=== PATIENT | female | born 1955 | race Caucasian/White ===

== ENCOUNTER → 2018-01-31 | Outpatient (CLI) | payer OTHER ==
[~2018-01-31] MED LIST: ALP25 PO; ALPR-441 PO; AZIT-18 PO; CALC500T6 PO; DULO60CA51 PO; LEVO25TA57 PO; LOR1 PO; LORA-1455 PO; LOSA-57 PO; PAR20 PO; PARO25TA PO; PRED20TA6 PO; QUET300T17 PO; ROSU40TA18 PO; SERT-1 PO; TRAZ50 PO; [UNRECOGNIZED DRUG - OTHER]; trintellix
--- NOTE | 2018-01-31 16:59 | RADIOLOGY IMAGING REPORT ---
FACILITY: [facility] PATIENT NAME: JOSELYN HAYS : [id number] MR: [id number] V: [id number] EXAM DATE: [id number] ORDERING PHYSICIAN: PADILLA ALONZO TECHNOLOGIST: Rachel Quezada PROCEDURE:BILATERAL DIGITAL SCREENING MAMMOGRAM WITH CAD ASSISTED INTERPRETATION & 3D TOMOSYNTHESIS COMPARISON:Prior mammograms 02/01/17, 01/28/17, 01/16/16, 01/14/15, 01/11/14, 01/10/13. INDICATIONS:SCREENING FINDINGS: Moderately dense mildly heterogeneous fibroglandular tissue is seen throughout the breasts. The parenchymal pattern has remained stable allowing for difference in mammographic technique & patient positioning. There is no evidence of malignant appearing mass, malignant appearing calcifications or other secondary sign of malignancy in either breast. DIAGNOSTIC CATEGORY 1--NEGATIVE. RECOMMENDATIONS: ROUTINE MAMMOGRAM AND CLINICAL EVALUATION. IMPRESSION: BIRADS 1: Negative No significant abnormality is seen. Dictated by: Billie Guerrero M.D. on 01/31/2018 at 10:17 Transcribed by: MADYSON on 01/31/2018 at 10:23 Approved by: Billie Guerrero M.D. on 01/31/2018 at 16:59 [facility]
== END ==
LOC: MAMO 01:13
PROVIDERS: ATTEND Family Medicine
DX: Z12.31 Encounter for screening mammogram for malignant neoplasm of breast (principal)
CPT/HCPCS: 77063; 77067

== ENCOUNTER 2018-04-29 18:19 | Emergency (ER) | payer OTHER ==
--- NOTE | 2018-04-29 18:21 | ER Report ---
History and Physical Time Seen By MD: 18:21 HPI/ROS CHIEF COMPLAINT: Pressure in with suicidal ideation HISTORY OF PRESENT ILLNESS: 62-year-old female who previously presented to the ER on 03/11/17 with suicidal ideation and depression. She had a plan to take an overdose of pills to harm herself. She was transferred to a facility [facility] or [place] after arrangements were made. The patient's daughter transported the patient. At that time we were on divert. We had no beds available at our facility. Today. Patient's complaining of a panic attack. She was in [place] yesterday and had an acute panic attack related to her employment. Patient works here at . Patient denies suicidal ideation at this time. She is requesting medication for acute anxiety. Patient states she follows up with a counselor here in [place]. REVIEW OF SYSTEMS: Respiratory: No cough, no dyspnea. Cardiovascular: No chest pain, no palpitations. Gastrointestinal: No vomiting, no abdominal pain. Musculoskeletal: No back pain. Allergies: Coded Allergies: No Known Drug Allergies (Verified , 03/11/17) Home Meds Active Scripts Lorazepam (ATIVAN) 0.5 Mg Tablet, 1 MG PO Q4-6H for 10 Days Prov:JUAN AWAD MD 03/12/17 Reported Medications Aripiprazole (ABILIFY) 2 Mg Tablet, 2 MG PO QDAY, TAB 04/29/18 [trintellix] No Conflict Check 03/12/17 Sertraline Hcl (ZOLOFT) 50 Mg Tablet, 1 TAB PO QDAY, TAB 03/11/17 Calcium Carbonate (CALCIUM) Unknown Strength Tablet, 500 MG PO QDAY 09/17/16 Losartan/Hydrochlorothiazide (LOSARTAN-HCTZ 100-12.5 MG TAB) 1 Each Tablet, 1 EACH PO QDAY 01/18/15 Levothyroxine Sodium (SYNTHROID) 25 Mcg Tablet, 25 MCG PO QDAY 05/06/13 Trazodone Hcl (Desyrel) 50 Mg Tab, 50 MG PO QHS 01/23/10 Alprazolam (Xanax Er) 0.5 Mg Tab.sr.24h, 0.5 MG PO QDAY 01/23/10 Past Medical/Surgical History Hypertension, hypothyroidism, depression/anxiety Reviewed Nurses Notes: Yes Old Medical Records Reviewed: Yes Hx Smoking: No Smoking Status: Never Smoker Hx Substance Use Disorder: No Hx Alcohol Use: Yes Constitutional Vital Sign - Last 24 Hours 04/29/18 18:31 Temp 98.1 Pulse 75 Resp 18 B/P (MAP) 131/88 Pulse Ox 90 O2 Delivery Room Air Physical Exam General Appearance: The patient is alert, has no immediate need for airway protection and no current signs of toxicity. Vital signs stable, afebrile, pulse ox normal HEENT: Pupils equal and round no injection. Oropharynx without redness or exudate, mucous. Membranes are moist Respiratory: Chest is non tender, lungs are clear to auscultation. Cardiac: regular rate and rhythm, no murmur Gastrointestinal: Abdomen is soft and non tender, no masses, bowel sounds normal. Musculoskeletal: Neck: Neck is supple and non tender. Extremities have full range of motion and are non tender. Skin: No rashes or lesions. DIFFERENTIAL DIAGNOSIS: After history and physical exam differential diagnosis was considered for depression including functional and major depression, situational depression, medication side effect, anxiety, panic attack, drugs and alcohol abuse. Medical Decision Making ED Course/Re-evaluation ED Course Patient was admitted to an examination room. H&P was done. The differential diagnosis was considered. On clinical examination, patient appears anxious and tearful. He is reluctant to talk about her problems and stressors. She has a previous ER visit from 1 year ago where she was transferred to a inpatient facility for suicidal ideation. Patient is requesting medication to help with her anxiety. She has questioned about suicidal ideation and denies such. She has no active plan. Patient's medicated with 1 mg of Ativan. On reevaluation patient seems upset and is requesting to leave. Patient proceeds to walk from the emergency department. Patient denies actual suicidal ideation. I do not think she is holdable. She is allowed to leave under her own free will. Decision to Disposition Date: Apr 29, 2018 Decision to Disposition Time: 19:01 Depart Departure Latest Vital Signs Vital Signs Date Time Temp Pulse Resp B/P (MAP) Pulse Ox O2 Delivery O2 Flow Rate FiO2 04/29/18 18:31 98.1 75 18 131/88 90 Room Air Impression: Primary Impression: Anxiety Additional Impression: Panic attack Condition: Improved Disposition: AGAINST MED ADV / DISCONT CARE Referrals: PADILLA ALONZO MD (PCP) Problem Qualifiers MARCELLUS CRAIN DO Apr 29, 2018 18:21
[2018-04-29 18:31] VITALS: BP 131/88
[2018-04-29] MEDS ORDERED: LORazepam 1 MG TAB PO ONE (18:40)
[2018-04-29] MEDS ORDERED: ARI2 PO (18:44)
== END 2018-04-29 19:04 | disposition left against medical advice (07) ==
LOC: ER 18:27
DX: F41.9 Anxiety disorder, unspecified (principal); F41.0 Panic disorder [episodic paroxysmal anxiety]
CPT/HCPCS: 99283

== ENCOUNTER → 2019-02-20 | Outpatient (CLI) | payer OTHER ==
[~2019-02-20] MED LIST changes: +ARI2 PO
--- NOTE | 2019-02-21 14:47 | RADIOLOGY IMAGING REPORT ---
FACILITY: [facility] PATIENT NAME: JOSELYN HAYS : [id number] MR: [id number]: [id number] EXAM DATE: [id number] ORDERING PHYSICIAN: PADILLA ALONZO TECHNOLOGIST: Rachel Quezada PROCEDURE: BILATERAL DIGITAL SCREENING MAMMOGRAM WITH CAD ASSISTED INTERPRETATION & 3D TOMOSYNTHESIS REASON FOR STUDY: Screening FAMILY HISTORY OF BREAST CANCER: BREAST PROCEDURES/TREATMENTS: COMPARISON: 01/31/18 VIEWS OBTAINED: 2D & 3D full field CC & MLO BREAST DENSITY: Breast tissue demonstrates scattered fibroglandular tissue elements MAMMOGRAM FINDINGS: There is no suspicious mass, calcification or architectural distortion. DIAGNOSTIC CATEGORY 1--NEGATIVE. RECOMMENDATIONS: ROUTINE YEARLY MAMMOGRAM AND CLINICAL EVALUATION. IMPRESSION: BIRADS 1: Negative. No mammographic evidence of malignancy. Dictated by: Emmett Hardwick M.D. on 02/21/2019 at 13:05 Transcribed by: ALTAGRACIA on 02/21/2019 at 14:24 Approved by: Emmett Hardwick M.D. on 02/21/2019 at 14:46 [facility]
== END ==
LOC: MAMO 00:37
PROVIDERS: ATTEND Family Medicine
DX: Z12.31 Encounter for screening mammogram for malignant neoplasm of breast (principal)
CPT/HCPCS: 77063; 77067